=== PATIENT | female | born 1975 | race Caucasian/White ===

== ENCOUNTER 2017-04-23 20:48 | Emergency (ER) | payer SELFPAY ==
[2017-04-23 22:10] LABS: BASOPHIL % 0.5 % (0-2); PLATELET COUNT 317 x10^3mcL (130-400)
[2017-04-23 22:12] LABS: RED CELL DISTRIBUTION WIDTH 17.4 % (11.5-14.5)
[2017-04-23 23:18] VITALS: BP 133/79
== END 2017-04-23 23:18 | disposition home or self-care (01) ==
LOC: ED 20:48
PROVIDERS: Emergency Medicine
DX: O20.0 Threatened abortion (principal); Z3A.11 11 weeks gestation of pregnancy
CPT/HCPCS: 36415